=== PATIENT | male | born 1940 | race Caucasian/White ===

== ENCOUNTER → 2023-10-11 10:02 | Outpatient (REF) | payer MEDICARE, OTHER, SELFPAY | LOC: MRI 3T 10:02 | PROVIDERS: ATTENDING PHYSICIAN Family Medicine | DX: R42 Dizziness and giddiness (principal); I10 Essential (primary) hypertension; E78.2 Mixed hyperlipidemia; R11.0 Nausea | CPT/HCPCS: 70551 ==

== ENCOUNTER 2023-10-22 11:40 | Emergency (ER) | payer MEDICARE, OTHER, SELFPAY ==
[2023-10-22 11:42] VITALS: BP 133/83
[2023-10-22 12:10] VITALS: BP 124/77
[2023-10-22 12:17] VITALS: BMI 29.8
[2023-10-22 12:49] LABS: % Eosinophils 3.3 % (0-6); % Immature Granulocytes 2.6 % (0-0.5); % Lymphocytes 9.1 % (20.5-51.1); Absolute Basophils 0.1 10^3/uL (0-0.2); Absolute Eosinophils 0.2 10^3/uL (0-0.7); Absolute Immature Granulocytes 0.2 10^3/uL (0-0.05); Absolute Lymphocytes 0.5 10^3/uL (1.2-3.4); Absolute Monocytes 0.6 10^3/uL (0.1-0.6); Absolute Neutrophils 4.2 10^3/uL (1.4-6.5); Hematocrit 45.7 % (39.0-52.0); Hemoglobin 15.3 g/dL (13.0-18.0); Mean Corp Hgb Conc. 33.5 g/dL (33.0-37.0); Mean Corpuscular Hgb 30.2 pg (27.0-31.0); Mean Corpuscular Volume 90.3 fL (80.0-94.0); Nucleated Red Blood Cells % 0 % (-); Platelet Count 269 10^3/uL (130-400); Red Blood Cell Count 5.06 10^6/uL (4.70-6.10); Red Cell Dist. Width 12.8 % (11.5-14.5); White Blood Cell Count 5.7 10^3/uL (4.8-10.8)
[2023-10-22 13:00] VITALS: BP 107/63
[2023-10-22 13:05] LABS: ALT (SGPT) 26 U/L (0-50); AST (SGOT) 27 U/L (17-59); Albumin 3.8 g/dl (3.5-5.0); Alkaline Phosphatase 76 U/L (38-126); Blood Urea Nitrogen 17 mg/dl (9-20); Calcium 9.1 mg/dl (8.4-10.2); Carbon Dioxide 30 mmol/L (22-30); Chloride 98 mmol/L (98-107); Estimated Creatinine Clearance 66 ml/min; Glucose 94 mg/dl (70-99); Potassium 4.9 mmol/L (3.5-5.1); Sodium 134 mmol/L (135-145); Total Bilirubin 0.5 mg/dl (0.2-1.3); Total Protein 6.2 g/dl (6.3-8.2); eGFR > 60.00
[2023-10-22 13:12] LABS: COVID-19 Antigen Negative (Negative)
--- NOTE | 2023-10-22 13:42 | ED.GENMED ---
History of Present Illness
General
Chief Complaint: Urinary Symptoms
Time Seen by Provider: 10/22/23 13:25
History of Present Illness
History of Present Illness:
Patient is a an 83-year-old male with past medical history of chronic back pain with lumbar stenosis and prior laminectomy and spinal fusion and hypertension here today with significant other for evaluation of several weeks of increased frequency of
urination associated with urinary urgency and discomfort upon urination. No rashes noted. No scrotal symptoms. Patient was evaluated by his family doctor last week and prescribed Bactrim x 10 days for treatment of a UTI. He has noted improvement
of symptoms and has about 6 days left of antibiotics. Patient also reports dizziness however states he has had this for many years. He is currently following with his family doctor for this and recently had an MRI on 10/11/2023 which revealed no
acute intracranial abnormality. There was findings of severe right maxillary sinus mucosal disease/sinusitis. Patient was started on amoxicillin by his primary care provider for treatment of this. Patient did note a fever with chills recently
however this has since resolved. No vomiting. No abdominal pain. He has noted constipation. No chest pain or shortness of breath. The patient's does feel the patient has been more shaky and lying down more than usual.
Review of Systems
Review of Systems
All Other Systems: ROS reviewed and negative except as documented in HPI and ROS
Phy Exam
Physical Exam
Physical Exam:
GENERAL: Alert , in no apparent distress
EYE: pupils equal and reactive
NECK: Supple, no significant adenopathy.
ENT: o/p clr, mmm.
CARDIAC: Regular rate and rhythm .
LUNGS: Clear breath sounds bilaterally, no acute respiratory distress, no wheezes/rales/rhonchi
ABDOMEN: Soft, without focal tenderness, no r/g, no cvat
NEUROLOGICAL: Alert and oriented, no focal neuro deficits, moving all extremities, normal sensation and motor
GENITAL: no tenderness, no masses, no rashes
SKIN: Warm and dry, skin intact.
MUSCULOSKELETAL: No edema, well perfused.
PSYCH: Normal and appropriate interaction.
Course
Orders/Labs/Results
Orders:
Orders
10/22/23 12:22
COVID-19 Antigen Urgent
Source: Nasal Swab
Complete Blood Count/With Diff Urgent
Comprehensive Metabolic Panel Urgent
Urinalysis Reflex To Culture Urgent
Date Specimen was Collected: 10/22/23
Time Specimen was Collected: 12:19
Urine Microscopic Reflex Cult Urgent
Urine Culture Urgent
JOSE ELIAS Source: U
Specimen Description:
Date Specimen was Collected: 10/22/23
Time Specimen was Collected: 12:19
Abnormal Lab Results
10/22/23
12:22
Abs Immat Gran (auto) 0.2 H 10^3/uL
(0-0.05)
Absolute Lymphs (auto) 0.5 L 10^3/uL
(1.2-3.4)
Immature Gran % 2.6 H %
(0-0.5)
Lymphocytes % 9.1 L %
(20.5-51.1)
Monocytes % 11.0 H %
(1.7-9.3)
Sodium 134 L mmol/L
(135-145)
Total Protein 6.2 L g/dl
(6.3-8.2)
Ur Occult Blood Reflex 1+ A
(Negative)
Leukocyte Esterase Rfl 1+ A
(Negative)
Urine WBC (Reflex) 11-15 A /HPF
(0-5)
Urine Bacteria (Reflex) Few A
(Negative)
10/22/23 12:22
10/22/23 12:22
Vital Signs
Initial and Last Documented VS:
Initial Vital Signs
Temp Pulse Resp BP Pulse Ox
98.2 F 82 18 133/83 98
10/22/23 11:42 10/22/23 11:42 10/22/23 11:42 10/22/23 11:42 10/22/23 11:42
Last Documented Vital Signs
Temp Pulse Resp BP Pulse Ox
97.8 F 70 17 122/68 96
10/22/23 16:37 10/22/23 16:37 10/22/23 16:37 10/22/23 16:37 10/22/23 16:37
MDM/Problems Addressed
Differential Diagnosis Includes:
Patient is a an 83-year-old male with past medical history of chronic back pain with lumbar stenosis and prior laminectomy and spinal fusion and hypertension here today with significant other for evaluation. Overall, patient appears very well.
Vitals grossly within normal limits. Physical examination described above. The patient is neurologically intact. Genital examination normal. A workup was initiated which reveals no significant acute abnormalities. Urinalysis was obtained which
reveals 11-15 WBCs and 1+ leukocyte esterase. There is few bacteria. 0-2 squamous epithelium. Negative nitrates and there is 1+ blood. COVID/19 testing negative. Patient made aware of findings. I suspect he likely is having resolution of his
urinary tract infection given he reports symptoms are improving. We will send urine for culture but will not change antibiotic at this time. A post void residual was obtained which was normal at 27. Recommend supportive measures and close
follow-up with his doctor. Regarding the patient's dizziness, he is neurologically intact. He is able to ambulate appropriately. He did recently have an MRI which was noted to be normal from a neurological standpoint. His dizziness has been
chronic in nature. We will recommend continued supportive measures, close follow-up with his doctor, and we discussed neurology follow-up. At this time, the patient appears very well overall. I did discuss a period of observation in the hospital
with admission for monitoring but patient/ declined. Per triage note the was concerned as the patient was reportedly mentally and physically declining, however, on my evaluation this was not noted. Patient appears astute, able to fully
care for himself, and appears very well intellectually. I do think this is reasonable for the patient to be discharged given well appearance and ability to closely follow-up. He was provided with strict return precautions for worsening symptoms.
He voices understanding. All questions answered. Stable for discharge.
*Critical Care Note
Total Time (30-74mins, 75-104mins- exclusive of procedures): Not Applicable
ED Attending Note
-
Portions of this chart may have been created with voice recognition software.� Occasional wrong word or��sound alike� substitutions may have occurred due to the inherent limitations of voice recognition software.
Discharge Plan
Departure
Patient Disposition: Home (Routine Discharge)
Date of Disposition: 10/22/23
Time of Disposition: 16:45
Patient with high blood pressure during this ER visit?: No
Condition: Good
Covid-19: Negative COVID-19
Discharge Problem:
Acute UTI, Dizziness
Instructions: Urinary Tract Infection, Adult (DC)
Prescriptions:
No Action
cholecalciferol (vitamin D3) [Vitamin D3] 1,000 UNIT capsule
1,000 unit PO DAILY
acetaminophen [Tylenol] 325 mg Tablet
650 mg PO Q6HPRN PRN (Reason: mild pain)
sulfamethoxazole-trimethoprim [Bactrim DS] 800-160 mg Tablet
1 tab PO BID
Patient Comments:
10/22/23: filled 10/16/23 for 20 tablets over 10 days.
lisinopril 5 mg Tablet
5 mg PO DAILY
scopolamine base 1 mg over 3 days Patch 3 Day
1 patch TRANSDERMAL [id number] PRN (Reason: dizziness)
Referrals:
Driss Mims MD [Family Provider] - Follow up in 2-3 days
Activity Restrictions/Additional Instructions:
Continue taking the previously prescribed Bactrim antibiotic as directed. Drink plenty of fluids. Rest.
Follow-up with your doctor closely within the next 2 to 3 days for close reevaluation.
Return for any new, worsening, or concerning symptoms.
Interventions
Interventions:
*Risk Screen - Suicide Last Done: 10/22/23 12:15
*General Assessment Last Done: 10/22/23 12:15
*Neglect/Abuse Screening Last Done: 10/22/23 12:15
ED- Fall Risk Assessment Last Done: 10/22/23 12:18
*ED COVID-19 Vaccine History Last Done: 10/22/23 12:15
ED-Male Genitourinary Assessment Last Done: 10/22/23 12:16
Discharge Date and Time
Print Language: [place]
[2023-10-22 14:00] VITALS: BP 101/65
[2023-10-22 14:05] LABS: Urine Albumin Negative (Neg - Trace); Urine Bilirubin Negative (Negative); Urine Character Clear (Clear); Urine Color Yellow; Urine Glucose Negative (Negative); Urine Ketone Negative (Negative); Urine Leukocyte 1+ (Negative); Urine Nitrite Negative (Negative); Urine Occult Blood 1+ (Negative); Urine Urobilinogen Negative (Neg - 1+)
[2023-10-22 15:12] LABS: Urine Mucus Few; Urine Squamous Cell 0-2 /LPF (Few)
[2023-10-22 15:13] LABS: Urine Bacteria Few (Negative); Urine Red Blood Cell 0-2 /HPF (0-2)
[2023-10-22 16:37] VITALS: BP 122/68
== END 2023-10-22 17:02 | disposition home or self-care (01) ==
LOC: EMR 11:40
PROVIDERS: EMERGENCY PHYSICIAN Emergency Medicine; FAMILY PHYSICIAN Family Medicine
DX: N39.0 Urinary tract infection, site not specified (principal); R42 Dizziness and giddiness; R50.9 Fever, unspecified; K59.00 Constipation, unspecified; Z11.52 Encounter for screening for COVID-19; I10 Essential (primary) hypertension; M48.061 Spinal stenosis, lumbar region without neurogenic claudication; G89.29 Other chronic pain; Z87.440 Personal history of urinary (tract) infections; Z98.1 Arthrodesis status
CPT/HCPCS: 99283; 51798; 80053; 81003; 81015; 85025; 87086; 87811

== ENCOUNTER → 2024-07-15 13:38 | Outpatient (REF) | payer MEDICARE, OTHER, SELFPAY | LOC: PAVMRI 13:38 | PROVIDERS: ATTENDING PHYSICIAN Psychiatry & Neurology Neurology; FAMILY PHYSICIAN Surgery | DX: R42 Dizziness and giddiness (principal) | CPT/HCPCS: 70544; 70549; A9585 ==

== ENCOUNTER → 2024-08-19 11:02 | Outpatient (REF) | payer MEDICARE, OTHER, SELFPAY | LOC: HWRAD 11:02 | PROVIDERS: ATTENDING PHYSICIAN Family Medicine | DX: J18.9 Pneumonia, unspecified organism (principal); R53.83 Other fatigue; R42 Dizziness and giddiness | CPT/HCPCS: 71046 ==

== ENCOUNTER 2024-10-17 09:03 | Emergency (ER) | payer MEDICARE, OTHER, SELFPAY ==
[2024-10-17 09:07] VITALS: BP 155/91
--- NOTE | 2024-10-17 10:13 | ED.GENMED ---
History of Present Illness
General
Chief Complaint: Bowel Problem
Source: patient and spouse
Exam Limitations: none
Time Seen by Provider: 10/17/24 09:54
Nursing documentation reviewed up to this point in time: agreed with
History of Present Illness
History of Present Illness:
84-year-old male with history of hypertension presents to the ER for evaluation of tenesmus/constipation. Patient reports that he had his last normal bowel movement 2 days ago. He says that over the past few days he has had difficulty passing
stool has had a consistent sensation of tenesmus. He says he is tried multiple times sitting on the toilet but has not been able to pass anything. He has been passing gas. He denies any rectal pain. Denies any abdominal pain. Denies any nausea
or vomiting. He was concerned that there was 'a blockage' which prompted trip to the emergency room. He did report in triage scant amount of blood in his stool few days ago. No other acute complaints. Denies prior abdominal surgeries. He does
not take any chronic opiates or really any chronic medications�previously on lisinopril but does not take this anymore as blood pressures have been well-controlled.
Review of Systems
Review of Systems
All Other Systems: ROS reviewed and negative except as documented in HPI and ROS
Constitutional: Denies fever
Respiratory: Denies trouble breathing
Cardiac: Denies chest pain
ABD/GI: Reports constipated; Denies abdominal pain, nausea or vomiting
: Denies flank pain
Musculoskeletal: Denies neck pain
Neurological: Denies dizzy or headache
Phy Exam
Physical Exam
Physical Exam:
General: Awake, alert, oriented x3; no acute distress
Head: Normocephalic, atraumatic
Eyes: Conjunctiva normal
Throat: Airway intact, handling secretions
Neck: Trachea midline, supple without meningismus
Lungs: Breathing comfortably no distress
Heart: Regular rate
Abd: Soft, non distended, nontender to deep palpation
Rectal: Very small external hemorrhoid no active bleeding; brown stool in the rectal vault no bright red blood; no fecal impaction or rectal mass noted but there is a large amount of very soft stool in the entire rectal vault
Neuro: Grossly intact, good rectal tone, ambulatory
Extremities: Warm and well-perfused with no edema
Scores
Heart Failure Risk
Heart Failure Risk Score: Not Applicable
Heart Score for Chest Pain Patients
STEMI patient?: Not applicable
Withdrawal Assessment of Alcohol
Withdrawal Assessment Completed?: Not applicable
Course
Orders/Labs/Results
Orders:
Orders
10/17/24 10:13
Enema- Treatment ONCE
Type: Milk of Molasses
Vital Signs
Initial and Last Documented VS:
Initial Vital Signs
Temp Pulse Resp BP Pulse Ox
36.6 C 95 16 155/91 97
10/17/24 09:07 10/17/24 09:07 10/17/24 09:07 10/17/24 09:07 10/17/24 09:07
Last Documented Vital Signs
Temp Pulse Resp BP Pulse Ox
36.6 C 95 16 155/91 97
10/17/24 09:07 10/17/24 09:07 10/17/24 09:07 10/17/24 09:07 10/17/24 09:07
MDM/Problems Addressed
Differential Diagnosis Includes:
Proctitis/stercoral colitis, fecal impaction, constipation, bowel obstruction less likely clinically
MDM/Problems Addressed:
84-year-old male presents with constipation and tenesmus for the past 2 days. Vitals and exam as above�while he has no fecal impaction rectum as he does have a large amount of soft stool in the rectal vault. Suspect simple constipation. He has no
abdominal pain or distention, no tenderness, no nausea or vomiting to suggest a bowel obstruction and he has not had any prior abdominal surgeries to increase his risk for such. No fecal impaction noted on exam. He has no pain with bowel
movements, no discharge, no fever to suggest significant proctitis or stercoral colitis. In my judgment no indication for emergent imaging. Will plan to treat with an enema and reassess symptoms.
*Pulse Oximetry
SaO2: 97
Oxygen Mode of Delivery: Room air
Patient hypoxic: no (97%)
*Critical Care Note
Total Time (30-74mins, 75-104mins- exclusive of procedures): Not Applicable
Data Reviewed
Source: patient and spouse
Further Testing Considered But Not Given:
Considered abdominal x-ray, considered abdominal CT
ED Attending Note
-
Portions of this chart may have been created with voice recognition software.� Occasional wrong word or��sound alike� substitutions may have occurred due to the inherent limitations of voice recognition software.
Discharge Plan
Departure
Prescriptions:
No Action
cholecalciferol (vitamin D3) [Vitamin D3] 1,000 UNIT capsule
1,000 unit PO DAILY
acetaminophen [Tylenol] 325 mg Tablet
650 mg PO Q6HPRN PRN (Reason: mild pain)
sulfamethoxazole-trimethoprim [Bactrim DS] 800-160 mg Tablet
1 tab PO BID
Patient Comments:
10/22/23: filled 10/16/23 for 20 tablets over 10 days.
lisinopril 5 mg Tablet
5 mg PO DAILY
scopolamine base 1 mg over 3 days Patch 3 Day
1 patch TRANSDERMAL [id number] PRN (Reason: dizziness)
Interventions
Interventions:
*Risk Screen - Suicide Last Done: 10/17/24 09:07
*Neglect/Abuse Screening Last Done: 10/17/24 09:07
Discharge Date and Time
Print Language: [place]
[2024-10-17 11:55] VITALS: BP 138/83
== END 2024-10-17 11:56 | disposition home or self-care (01) ==
LOC: EMR 09:03
PROVIDERS: EMERGENCY PHYSICIAN Emergency Medicine; FAMILY PHYSICIAN Family Medicine
DX: K59.00 Constipation, unspecified (principal); I10 Essential (primary) hypertension
CPT/HCPCS: 99282